=== PATIENT | male | born 1985 | race Caucasian/White ===

== ENCOUNTER 2018-02-12 16:16 | Emergency (ER) | payer SELFPAY ==
[2018-02-12] MEDS: LIDO:MAALOX 1:1 20 ML SINGLE DOSE. SWSW (16:46)
[2018-02-12] MEDS: IV NORMAL SALINE 1000ML BAG 1,000 ML IV ×2 (16:58→18:23)
[2018-02-12 17:11] LABS: BASO # 0.1 x10^3/uL (0.0-0.2); BASO % 1 % (0-3); EOS # 0.3 x10^3/uL (0.0-0.7); EOS % 2 % (0-3); HEMOGLOBIN 17.8 g/dL (13.0-17.5); LYMPH # 1.9 x10^3/uL (1.0-4.8); LYMPH % 8 % (24-48); MEAN CORPUSCULAR HEMOGLOBIN 32 pg (25-35); MEAN CORPUSCULAR HGB CONC 35 g/dL (31-37); MEAN CORPUSCULAR VOLUME 92 fL (79-100); MONO # 1.3 x10^3/uL (0.0-1.1); MONO % 6 % (0-9); NEUT # 18.4 x10^3uL (1.8-7.7); NEUT % 83 % (31-73); PLATELET COUNT 293 x10^3/uL (140-400); RED BLOOD COUNT 5.56 x10^6/uL (4.30-5.70); WHITE BLOOD COUNT 22.1 x10^3/uL (4.0-11.0)
[2018-02-12 17:12] LABS: ADD MAN DIFF? YES
[2018-02-12 17:18] LABS: PROTHROMBIN TIME PATIENT 12.4 SEC (11.7-14.0)
[2018-02-12 17:19] LABS: ANION GAP 7 (6-14); BLOOD UREA NITROGEN 9 mg/dL (8-26); CALCIUM 9.2 mg/dL (8.5-10.1); CARBON DIOXIDE 29 mmol/L (21-32); CHLORIDE 104 mmol/L (98-107); GFR 87.7; GLUCOSE 96 mg/dL (70-99); POTASSIUM 4.1 mmol/L (3.5-5.1); SODIUM 140 mmol/L (136-145)
[2018-02-12 17:25] LABS: ALBUMIN 3.7 g/dL (3.4-5.0); ALK PHOS 74 U/L (46-116); ALT (SGPT) 19 U/L (16-63); AST (SGOT) 11 U/L (15-37); DIRECT BILIRUBIN 0.1 mg/dL (0.0-0.2); LIPASE 90 U/L (73-393); TOTAL BILIRUBIN 0.7 mg/dL (0.2-1.0); TOTAL PROTEIN 7.5 g/dL (6.4-8.2)
[2018-02-12 17:28] LABS: TROPONINI < 0.017 ng/mL (0.000-0.055)
[2018-02-12 17:33] LABS: NT-PRO BNP 7 pg/mL (0-124)
[2018-02-12 17:33] LABS: CKMB INDEX 0.4 % (0-4); CKMB MASS 0.5 ng/mL (0.0-3.6); CREATINE KINASE 125 U/L (39-308)
[2018-02-12 18:18] LABS: % ATYL 3 % (0-0); % BANDS 9 % (0-9); % LYMPHS 5 % (24-48); % MONOS 6 % (0-10); % SEGS 77 % (35-66)
[2018-02-12 18:19] LABS: PLT ESTIMATE ADEQUATE (ADEQUATE)
[2018-02-12 20:07] LABS: BILIRUBIN,URINE NEGATIVE (NEG); CLARITY,URINE CLEAR; COLOR,URINE AMBER; GLUCOSE,URINE NEGATIVE (NEG); NITRITE,URINE NEGATIVE (NEG); PH,URINE 7.5; PROTEIN,URINE NEGATIVE (NEG-TRACE)
[2018-02-12 20:12] LABS: BARBITURATES NEG (NEG); BENZODIAZEPINES POS (NEG); CANNABINOIDS POS (NEG); COCAINE NEG (NEG); METHADONE NEG (NEG); OPIATES NEG (NEG); PHENCYCLIDINE NEG (NEG)
[2018-02-12 20:15] LABS: AMPHETAMINE/METHAMPHETAMINE POS (NEG); BACTERIA,URINE 0 /HPF (0-FEW); ETHANOL, URINE NEG (NEG); WBC,URINE OCC /HPF (0-4)
== END 2018-02-12 22:06 | disposition home or self-care (01) ==
LOC: ER 16:16
DX: R10.13 Epigastric pain (principal); F15.10 Other stimulant abuse, uncomplicated; Z59.0 Homelessness
CPT/HCPCS: 36415; 74022; 80048; 80076; 80307; 81001; 82553; 83690; 83735; 83880; 84484; 85007; 85025; 85610; 93005; 99285-25; J7030